=== PATIENT | male | born 1985 | race Caucasian/White ===

== ENCOUNTER 2019-10-15 10:17 | Emergency (ER) | payer OTHER ==
[~2019-10-15] VITALS: Ht 170.1 cm; Wt 54.4 kg
[2019-10-15 10:56] LABS: BILIRUBIN NEGATIVE (NEGATIVE); BLOOD NEGATIVE (NEGATIVE); CLARITY CLEAR (CLEAR); COLOR YELLOW (YELLOW); GLUCOSE NEGATIVE (NEGATIVE); KETONE NEGATIVE (NEGATIVE)
[2019-10-15 10:57] LABS: LEUKO ESTERASE NEGATIVE (NEGATIVE); NITRITE NEGATIVE (NEGATIVE); PH 6.5 (5.0-9.0); UROBILINOGEN 0.2 E.U./dl (0.2-1.0)
[2019-10-15] MEDS ORDERED: TYLENOL325 M1 PO (11:00)
[2019-10-15] MEDS ORDERED: NAPROSYN500 MG PO (11:00)
[2019-10-15] MEDS ORDERED: CYCLOBENZAPRINE10 MG PO (11:00)
[2019-10-15 11:14] LABS: MUCOUS 1+
== END 2019-10-15 11:23 | disposition home or self-care (01) ==
LOC: ED 10:17
PROVIDERS: Emergency Medicine
DX: M54.5 Low back pain (principal); M54.6 Pain in thoracic spine; R11.0 Nausea; X50.0XXA Overexertion from strenuous movement or load, initial encounter; Y93.89 Activity, other specified; Y92.89 Other specified places as the place of occurrence of the external cause; Y99.8 Other external cause status

== ENCOUNTER 2019-11-09 04:33 | Emergency (ER) | payer OTHER ==
[~2019-11-09] VITALS: Ht 175.2 cm; Wt 68.0 kg
[~2019-11-09 04:33] MED LIST: CYCLOBENZAPRINE10 MG PO; NAPROSYN500 MG PO; TYLENOL325 M1 PO
[2019-11-09 05:30] LABS: ALBUMIN 3.1 gm/dl (3.1-4.5); ALKALINE PHOSPHATASE 83 U/L (45-117); BUN 7 mg/dl (7-24); CHLORIDE 110 mmol/L (98-107); CREATININE 0.72 mg/dL (0.70-1.30); POTASSIUM 3.7 mmol/L (3.5-5.1); SGOT/AST 15 IU/L (3-35); SGPT/ALT 19 U/L (12-78); SODIUM 145 mmol/L (136-145); TOTAL PROTEIN 7.6 gm/dL (6.4-8.2)
[2019-11-09 05:34] LABS: TROPONIN I < 0.015 ng/ml (<0.045)
[2019-11-09 06:06] LABS: BASO # 0.1 10*3/uL (0.0-0.1); BASO % 0.7 % (0.0-1.0); EOS # 0.2 10*3/uL (0.0-0.4); EOS % 2.1 % (1.0-4.0); HEMATOCRIT 45.7 % (42.0-52.0); HEMOGLOBIN 14.8 g/dl (14.0-18.0); LYMPH # 1.7 10*3/uL (1.3-4.4); LYMPH % 14.9 % (27.0-41.0); MEAN CELL VOLUME 92.7 fl (80.0-94.0); MEAN CORPUSCULAR HGB CONC 32.4 g/dl (33.0-37.0); MEAN PLATELET VOLUME 9.8 fl (9.6-12.3); MONO # 0.8 10*3/uL (0.1-1.0); NEUT # 8.6 10*3/uL (2.3-7.9); PLATELET COUNT AUTOMATED 367 10*3/uL (130-400); RED BLOOD COUNT 4.93 10*6/uL (4.50-5.90); RED CELL DISTRI WIDTH 13.6 % (0-14.5); WHITE BLOOD COUNT 11.5 10*3/uL (4.8-10.8)
[2019-11-09] MEDS ORDERED: LEVAQUIN750 M1 PO (06:25)
[2019-11-09] MEDS ORDERED: IBU800 MG PO (06:25)
[2019-11-09 06:42] LABS: BILIRUBIN NEGATIVE (NEGATIVE); BLOOD NEGATIVE (NEGATIVE); CLARITY CLEAR (CLEAR); COLOR YELLOW (YELLOW); GLUCOSE NEGATIVE (NEGATIVE); KETONE NEGATIVE (NEGATIVE); LEUKO ESTERASE NEGATIVE (NEGATIVE); NITRITE NEGATIVE (NEGATIVE); PH 7.5 (5.0-9.0); UROBILINOGEN 0.2 E.U./dl (0.2-1.0)
[2019-11-09 06:44] LABS: RBC 0-2 rbc/hpf (0-2); WBC 0-2 wbc/hpf (0-5)
== END 2019-11-09 07:32 | disposition home or self-care (01) ==
LOC: ED 04:33
PROVIDERS: Emergency Medicine
DX: J18.9 Pneumonia, unspecified organism (principal); J45.909 Unspecified asthma, uncomplicated

== ENCOUNTER 2020-01-04 06:27 | Emergency (ER) | payer OTHER ==
[~2020-01-04] VITALS: Ht 170.1 cm; Wt 54.4 kg
[~2020-01-04 06:27] MED LIST changes: +IBU800 MG PO; +LEVAQUIN750 M1 PO
[2020-01-04 07:01] LABS: BASO # 0.1 10*3/uL (0.0-0.1); BASO % 0.7 % (0.0-1.0); EOS # 0.1 10*3/uL (0.0-0.4); EOS % 1.6 % (1.0-4.0); HEMATOCRIT 46.9 % (42.0-52.0); LYMPH # 2.4 10*3/uL (1.3-4.4); MEAN CELL VOLUME 92.5 fl (80.0-94.0); MEAN CORPUSCULAR HGB 30.8 pg (27.0-31.0); MEAN CORPUSCULAR HGB CONC 33.3 g/dl (33.0-37.0); MEAN PLATELET VOLUME 9.6 fl (9.6-12.3); MONO # 0.9 10*3/uL (0.1-1.0); MONO % 10.2 % (3.0-9.0); NEUT # 5.3 10*3/uL (2.3-7.9); NEUT % 60.4 % (47.0-73.0); PLATELET COUNT AUTOMATED 243 10*3/uL (130-400); RED BLOOD COUNT 5.07 10*6/uL (4.50-5.90); RED CELL DISTRI WIDTH 14.6 % (0-14.5); WHITE BLOOD COUNT 8.8 10*3/uL (4.8-10.8)
[2020-01-04 07:16] LABS: ALBUMIN 3.5 gm/dl (3.1-4.5); ALKALINE PHOSPHATASE 94 U/L (45-117); BUN 4 mg/dl (7-24); CHLORIDE 106 mmol/L (98-107); CREATININE 0.82 mg/dL (0.70-1.30); LIPASE 167 U/L (73-393); POTASSIUM 3.5 mmol/L (3.5-5.1); SGOT/AST 48 IU/L (3-35); SGPT/ALT 31 U/L (12-78); SODIUM 139 mmol/L (136-145); TOTAL PROTEIN 7.2 gm/dL (6.4-8.2)
== END 2020-01-04 07:12 | disposition left against medical advice (07) ==
LOC: ED 06:27
PROVIDERS: Emergency Medicine
DX: R10.9 Unspecified abdominal pain (principal); R11.0 Nausea; Z53.21 Procedure and treatment not carried out due to patient leaving prior to being seen by health care provider

== ENCOUNTER 2020-04-28 19:29 | Emergency (ER) | payer OTHER ==
[~2020-04-28] VITALS: Ht 170.1 cm; Wt 54.4 kg
[2020-04-28] MEDS ORDERED: LEVAQUIN750 M1 PO (20:16)
== END 2020-04-28 20:30 | disposition home or self-care (01) ==
LOC: ED 19:29
DX: L03.213 Periorbital cellulitis (principal); Z88.0 Allergy status to penicillin

== ENCOUNTER 2020-05-26 16:29 | Emergency (ER) | payer OTHER ==
[~2020-05-26] VITALS: Wt 54.4 kg
[2020-05-26] MEDS ORDERED: Tobrex Ophth S2.5 ML OPH (16:45)
== END 2020-05-26 16:50 | disposition home or self-care (01) ==
LOC: ED 16:29
DX: H00.013 Hordeolum externum right eye, unspecified eyelid (principal); Z88.0 Allergy status to penicillin; Z79.899 Other long term (current) drug therapy

== ENCOUNTER 2020-10-11 18:46 | Emergency (ER) | payer OTHER ==
[~2020-10-11] VITALS: Ht 170.1 cm; Wt 54.4 kg
[~2020-10-11 18:46] MED LIST changes: +Tobrex Ophth S2.5 ML OPH
[2020-10-11] MEDS ORDERED: ASPIRIN ADULT L81 M1 PO (19:12)
== END 2020-10-11 19:56 | disposition home or self-care (01) ==
LOC: ED 18:46
DX: M25.521 Pain in right elbow (principal); J45.909 Unspecified asthma, uncomplicated; Z88.0 Allergy status to penicillin; Z79.82 Long term (current) use of aspirin

== ENCOUNTER 2022-04-03 15:57 | Emergency (ER) | payer OTHER ==
[~2022-04-03] VITALS: Wt 54.4 kg
[~2022-04-03 15:57] MED LIST changes: +ASPIRIN ADULT L81 M1 PO
[2022-04-03 16:52] LABS: HEMATOCRIT 41.8 % (42.0-52.0); MEAN CELL VOLUME 91.1 fl (80.0-94.0); MEAN CORPUSCULAR HGB 31.6 pg (27.0-31.0); MEAN CORPUSCULAR HGB CONC 34.7 g/dl (33.0-37.0); PLATELET COUNT AUTOMATED 129 10*3/uL (130-400); RED BLOOD COUNT 4.59 10*6/uL (4.50-5.90)
[2022-04-03 16:56] LABS: MANUAL DIFF REFLEX YES
[2022-04-03 17:15] LABS: ATYPICAL LYMPHS 1 % (0-0); BASOPHILS 1 % (0-1); TOTAL CELLS COUNTED 100 #CELLS
[2022-04-03 17:16] LABS: PLATELET SUFFICIENCY LOW (NORMAL)
[2022-04-03 17:20] LABS: ALKALINE PHOSPHATASE 66 U/L (45-117); BUN 8 mg/dl (7-24); CHLORIDE 98 mmol/L (98-107); POTASSIUM 3.3 mmol/L (3.5-5.1); SGOT/AST 34 IU/L (3-35); SGPT/ALT 15 U/L (12-78); SODIUM 132 mmol/L (136-145); TOTAL PROTEIN 6.9 gm/dL (6.4-8.2)
== END 2022-04-03 18:24 | disposition home or self-care (01) ==
LOC: ED 15:57
PROVIDERS: Emergency Medicine
DX: R42 Dizziness and giddiness (principal); Z20.822 Contact with and (suspected) exposure to COVID-19; R51.9 Headache, unspecified; Z88.0 Allergy status to penicillin; Z79.82 Long term (current) use of aspirin; Z90.89 Acquired absence of other organs